=== PATIENT | female | born 1960 | race Caucasian/White ===

== ENCOUNTER 2025-08-28 23:46 | Inpatient (IN) | payer MEDICAID ==
[~2025-08-28] VITALS: Ht 160 cm; Wt 103.6 kg
[2025-08-28 23:48] VITALS: O2SAT 99
[2025-08-29] MEDS: SODIUM CHLORIDE 0.9% 1,000 ML IV ONE (01:08)
[2025-08-29] MEDS: MORPHINE SULFATE 4 MG/ML INJ (FOR IV/IM USE) IV ONE ×2 (01:08→02:41)
[2025-08-29] MEDS: ONDANSETRON HCL 4MG/2ML INJ IV ONE (01:08)
[2025-08-29 01:16] LABS: BASOPHILS % 0.7 % (0.0-2.0); EOSINOPHILS % 2.4 % (0.0-5.0); HEMATOCRIT. 34.8 % (36.0-48.0); HEMOGLOBIN. 11.2 g/dL (12.0-16.0); LYMPHOCYTES % 15.2 % (20.0-50.0); MEAN PLATELET VOLUME 9.6 fl (7.4-10.4); MONOCYTES % 7.1 % (2.0-8.0); NEUTROPHILS % 74.6 % (40.0-76.0); PLATELET 256 x1000/uL (130-400); RED BLOOD CELL COUNT 4.19 mill/uL (4.2-5.4); RED CELL DISTRIBUTION WIDTH 14.9 % (11.6-14.6)
[2025-08-29 01:26] LABS: CREATININE 1.1 mg/dL (0.6-1.0); UREA NITROGEN BLOOD 18 mg/dL (9-23)
[2025-08-29 01:27] LABS: TROPONIN I HIGH SENSITIVITY < 4 ng/L (3.0-34)
[2025-08-29 03:47] LABS: TROPONIN I HIGH SENSITIVITY < 4 ng/L (3.0-34)
[2025-08-29 06:00] VITALS: BP 123/58; PULSE 100; RESP 16; TEMP 37.0852
[2025-08-29] MEDS ORDERED: IPRATROPIUM/ALBUTEROL 0.5-3(2.5)MG/3ML NEB HHN PRN (07:45)
[2025-08-29] MEDS ORDERED: GUAIFENESIN 200MG/10ML SUGAR FREE UDC PO PRN (07:45)
[2025-08-29] MEDS ORDERED: ACETAMINOPHEN 325MG TABLET PO PRN ×2 (07:45)
[2025-08-29] MEDS ORDERED: DIPHENHYDRAMINE 50MG/ML VIAL IV PRN (07:45)
[2025-08-29] MEDS ORDERED: ONDANSETRON HCL 4MG/2ML INJ IV PRN (07:45)
[2025-08-29] MEDS ORDERED: DOCUSATE SODIUM 100MG CAPSULE PO PRN (07:45)
[2025-08-29] MEDS ORDERED: MAGNESIUM/ALUMINUM HYDROXIDE/SIMETHICONE 30ML UDC PO PRN (07:45)
[2025-08-29 08:00] VITALS: BP 98/72; PULSE 109; RESP 16; TEMP 36.4; O2SAT 96
[2025-08-29 10:53] LABS: INR 1.0
[2025-08-29 11:06] LABS: PHOSPHORUS 3.7 mg/dL (2.5-4.9)
[2025-08-29 12:00] VITALS: BP 119/63; PULSE 102; RESP 16; TEMP 36.2; O2SAT 98
[2025-08-29] MEDS: MORPHINE SULFATE 2 MG/ML INJ (NOT FOR IM USE) IV PRN (12:05)
[2025-08-29 13:40] LABS: CLARITY URINE CLEAR (CLEAR); COLOR URINE YELLOW (YELLOW); GLUCOSE URINE 3+ (NEGATIVE); KETONES URINE NEGATIVE (NEGATIVE); LEUKOCYTE ESTERASE URINE NEGATIVE (NEGATIVE); NITRITE URINE NEGATIVE (NEGATIVE); OCCULT BLOOD URINE NEGATIVE (NEGATIVE); PH URINE 5.0 (4.5-8.0); PROTEIN URINE NEGATIVE (NEGATIVE); SPECIFIC GRAVITY URINE 1.032 (1.005-1.030); UROBILINOGEN URINE 0.2 E.U./dL (0.2-1.0)
[2025-08-29 14:11] LABS: BACTERIA URINE 1+; RBC URINE 0-2 /hpf (0-2); SQUAMOUS EPITHELIAL CELL URINE 1+ /lpf (RARE/1+); WBC URINE 0-2 /hpf (0-2); YEAST URINE NONE SEEN
[2025-08-29 14:15] LABS: *AMPHETAMINES SCREEN URINE NEGATIVE (NEGATIVE); *BARBITURATES SCREEN URINE NEGATIVE (NEGATIVE); *BENZODIAZEPINES SCREEN URINE NEGATIVE (NEGATIVE); *COCAINE SCREEN URINE NEGATIVE (NEGATIVE); CANNABINOID URINE SCREEN NEGATIVE (NEGATIVE); ECSTASY MDMA SCREEN URINE NEGATIVE (NEGATIVE); METHADONE URINE SCREEN NEGATIVE (NEGATIVE); OPIATES URINE SCREEN PRESUMPTIVE POSITIVE (NEGATIVE); PHENCYCLIDINE URINE SCREEN NEGATIVE (NEGATIVE)
[2025-08-29] MEDS: SODIUM CHLORIDE 0.9% 1,000 ML IV SCH (14:48)
[2025-08-29 16:00] VITALS: BP 112/90; PULSE 100; RESP 16; TEMP 36.5; O2SAT 94
[2025-08-29] MEDS ORDERED: INFLUENZA VACCINE 05/PF 0.5 ML SYRINGE IM ONE (17:00)
[2025-08-29] MEDS ORDERED: PNEUMOCOCCAL 20-VAL CONJ-DIP CRM 0.5ML IM ONE (17:00)
[2025-08-29 20:00] VITALS: BP 101/65; PULSE 96; RESP 18; TEMP 35.7; O2SAT 96
[2025-08-30] VITALS: BP 157/74; PULSE 103; RESP 18; TEMP 36.6; O2SAT 98
[2025-08-30 04:00] VITALS: BP 124/58; PULSE 105; RESP 16; TEMP 37.1; O2SAT 95
[2025-08-30 06:58] LABS: BASOPHILS % 0.4 % (0.0-2.0); EOSINOPHILS % 3.0 % (0.0-5.0); HEMATOCRIT. 31.7 % (36.0-48.0); HEMOGLOBIN. 10.5 g/dL (12.0-16.0); LYMPHOCYTES % 17.0 % (20.0-50.0); MEAN PLATELET VOLUME 9.6 fl (7.4-10.4); MONOCYTES % 9.0 % (2.0-8.0); NEUTROPHILS % 70.6 % (40.0-76.0); PLATELET 205 x1000/uL (130-400); RED BLOOD CELL COUNT 3.81 mill/uL (4.2-5.4); RED CELL DISTRIBUTION WIDTH 15.1 % (11.6-14.6)
[2025-08-30 07:22] LABS: CREATININE 0.6 mg/dL (0.6-1.0); TRIGLYCERIDE 182 mg/dL (0-150)
[2025-08-30 07:23] LABS: LDL CHOLESTEROL 52 mg/dL (5-100); UREA NITROGEN BLOOD 6 mg/dL (9-23)
[2025-08-30 07:25] LABS: T4 FREE 1.26 ng/dL (0.89-1.76)
[2025-08-30 08:00] VITALS: BP 112/66; PULSE 102; RESP 16; TEMP 36.7; O2SAT 96
[2025-08-30] MEDS: KETOROLAC 15MG/ML VIAL IV PRN (10:12)
[2025-08-30] MEDS ORDERED: HYDRALAZINE 20MG/ML VIAL IV PRN (11:30)
[2025-08-30] MEDS ORDERED: DEXTROSE 50% WATER 50ML SYRINGE IV PRN (11:30)
[2025-08-30] MEDS: BLOOD SUGAR DIAGNOSTIC STRIP TEST SCH (11:45)
[2025-08-30 12:00] VITALS: BP 127/66; PULSE 95; RESP 16; TEMP 36.6; O2SAT 95
[2025-08-30] MEDS ORDERED: INSULIN LISPRO 100 UNITS/ML SUBCUT SCH (12:15)
[2025-08-30] MEDS ORDERED: NAPR-677 MT (14:08)
[2025-08-30] MEDS ORDERED: HYDR-4001 MT (14:08)
[2025-08-30] MEDS ORDERED: METF-414 MT (16:08)
[2025-08-30 16:13] VITALS: BP 144/77; PULSE 102; RESP 16; TEMP 98.1
[2025-08-30] MEDS ORDERED: EMPAGLIFLOZIN 10MG TABLET PO SCH (16:20)
== END 2025-08-30 16:48 | disposition home or self-care (01) | DRG 342 ==
LOC: ER 23:46 → 5WST 08-29 03:30 → EDBEDREQ 08-29 03:33 → EDBEDREQTM 08-29 03:33 → ENRESERV 08-29 04:17
PROVIDERS: ADMIT Internal Medicine; ATTEND Internal Medicine
DX: S42.292A Other displaced fracture of upper end of left humerus, initial encounter for closed fracture (principal); M48.56XA Collapsed vertebra, not elsewhere classified, lumbar region, initial encounter for fracture; S52.125A Nondisplaced fracture of head of left radius, initial encounter for closed fracture; E11.65 Type 2 diabetes mellitus with hyperglycemia; I10 Essential (primary) hypertension; J45.909 Unspecified asthma, uncomplicated; E78.5 Hyperlipidemia, unspecified; R55 Syncope and collapse; R42 Dizziness and giddiness; R33.9 Retention of urine, unspecified; M48.07 Spinal stenosis, lumbosacral region; J98.11 Atelectasis; I95.9 Hypotension, unspecified; W18.39XA Other fall on same level, initial encounter; Y93.89 Activity, other specified; Y92.89 Other specified places as the place of occurrence of the external cause; Y99.8 Other external cause status
CPT/HCPCS: 36415; 71045; 72100; 72131; 72170; 73030; 73060; 73070; 73090; 80048; 80061; 80305; 81003; 82550; 82962; 83036; 83735; 84100; 84439; 84443; 84484; 85025; 93005; 93306; 93970; 96374; 96375; 96376; 99291; A4606; J1885; J2270; J2405; J7030